=== PATIENT | male | born 1985 | race Caucasian/White ===

== ENCOUNTER 2017-10-29 10:48 | Emergency (ER) | payer MEDICAID ==
--- NOTE | 2017-10-29 11:25 | ED Physician Chart ---
ED Chief Complaint/HPI - Patient Information Date Seen:: 10/29/17 Time Seen:: 11:21 Chief Complaint:: low back pain History of Present Illness:: 32 yo male had new onset of low back pain for 7 days. The pain started suddenly when the patient bent forward to lift an object. The pain became constant, 10/10 , affecting ROM. The pain was somewhat relieved by massage. He denied any leg pain, numbness or tingling. Allergies:: Allergies Allergy/AdvReac Type Severity Reaction Status Date / Time No Known Allergies Allergy Verified 10/29/17 10:59 Vitals:: Vital Signs - 8 hr 10/29/17 10:59 Temp 97.5 F HR 77 RR 16 BP 138/97 O2 Sat % 97 ED Review of Systems - Review of Systems General/Constitutional: No fever Skin: No skin lesions Head: No headache Eyes: No pain ENT: No sore throat Neck: No stiffness Cardio Vascular: No chest pain Pulmonary: No SOB GI: No nausea, No vomiting Musculoskeletal: Back pain Psychiatric: No prior psych history ED Past Medical History - Past Medical History Past Medical History: Arthritis (Rheumatoid) Social History: Non Smoker, No Alcohol, No Drug Use Surgical History: None Family Medical History - Family Member Mother Hx Family Cancer: No Hx Family Coronary Artery Disease: No Hx Family Stroke: No Hx Family Diabetes: No Hx Family AIDS: No Hx Family HIV: No Hx Family Hepatitis: No Hx Family Psychiatric Problems: No ED Physical Exam - Physical Examination General/Constitutional: Awake, Alert Head: Atraumatic Eyes: PERRL Skin: No skin lesions, No ecchymosis ENMT: Nasal exam nl Neck: No nuchal rigidity Respiratory: No Wheeze/Rhonchi/Rales Cardio Vascular: RRR, No murmur, gallop, rubs, NL S1 S2 GI: No tenderness/rebounding/guarding Other Extremities comments:: low back midline tenderness, left straight leg raise test causing back pain Neuro/Psych: Alert/oriented ED Labs/Radiology/EKG Results - Radiology Results Results: Lumbar spine X ray: mild to moderate degenerative changes ED Assessment - Assessment General Assessment: Lumbago Assessment/Comments:: Lumbar spine X ray Toradol 60mg IM x 1 D/c home Ibuprofen 800mg bid x 7 days Flexeral 5mg bid x 7 days F/u PCP for physical therapy. ED Septic Shock - . Is Septic Shock (SBP<90, OR Lactate>4 mmol\L) present?: No - <6hrs of presentation: Vital Signs: Vital Signs - 8 hr 10/29/17 10:59 Temp 97.5 F HR 77 RR 16 BP 138/97 O2 Sat % 97 ED Reassessment (Disposition) - Reassessment Reassessment Condition:: Improved - Patient Disposition Discharge/Transfer:: Home ED Discharge Plan - Patient Disposition Admit/Discharge/Transfer: PT DISCHARGED HOME Condition at Disposition: Stable Instructions: Back Pain, Adult
--- NOTE | 2017-10-29 12:12 | Diagnostic Imaging Report ---
Lumbar spine 3 views Indication: Low back pain Comparison: none Findings: No evidence of an acute compression fracture or subluxation. Mild to moderate degenerative changes are noted greatest at L1/L2 with mild disc space loss of height and marginal osteophytic spurring. The SI joints are preserved. Impression: No evidence of an acute compression fracture or subluxation [id number] degenerative changes, greatest at L1/L2. In the setting of trauma, if clinical symptoms persist and there is continued concern for an occult fracture, follow up exams in 5-7 days is suggested.
== END 2017-10-29 13:25 | disposition home or self-care (01) ==
LOC: ER 10:48
DX: M54.5 Low back pain (principal); M06.9 Rheumatoid arthritis, unspecified
CPT/HCPCS: 99284; 96372; 72100; J1885; Z7502; Z7610